=== PATIENT | female | born 1940 | race Caucasian/White ===

== ENCOUNTER 2020-04-15 15:58 | Observation (INO) ==
[2020-04-15] MEDS ORDERED: DilTIAZem 50 MG/50 ML IV.SOLN IVC SCH (16:15)
[2020-04-15 16:37] LABS: Basophils # 0.1 K/mcL (0.0-0.2); Basophils % 0.4 %; Eosinophils % 0.2 %; Hemoglobin 12.1 g/dL (11.5-15.4); Immature Granulocytes % 0.6 % (0-4); Lymphocytes # 1.1 K/mcL (0.6-4.6); Lymphocytes % 9.2 %; Mean Corpuscular HGB Conc 31.8 g/dL (31.6-35.5); Mean Corpuscular Hemoglobin 30.6 pg (28.0-33.3); Mean Corpuscular Volume 96.2 fL (83.0-100.0); Mean Platelet Volume 10.6 fL (9.4-12.4); Monocytes # 0.8 K/mcL (0.0-1.3); Monocytes % 6.2 %; Neutrophils # 10.2 K/mcL (1.6-8.9); Platelet Count 225 K/mcL (140-400); Red Blood Count 3.95 M/mcL (3.82-4.97); Red Cell Distribution Width 13.5 % (11.5-14.5); Segmented Neutrophils % 83.4 %; White Blood Count 12.3 K/mcL (4.3-11.1)
[2020-04-15 16:53] LABS: Activated Partial Thrombo Time 31.6 Seconds (26.0-36.0); Prothrombin Time 11.5 Seconds (9.4-12.1)
[2020-04-15 16:57] LABS: Magnesium 1.8 mg/dL (1.6-2.6); Potassium 3.8 mEq/L (3.5-5.1); Troponin I 0.03 ng/mL (< 0.04)
[2020-04-15 17:11] LABS: Thyroid Stimulating Hormone 3.231 mcIU/mL (0.340-5.600)
[2020-04-15 19:13] LABS: Bacteria,Urine Few per hpf (None-Few); Bilirubin,Urine Negative (Negative); Blood,Urine Negative (Negative); Clarity,Urine Turbid (Clear); Color,Urine Yellow (Yellow); Glucose,Urine (UA) Normal (Normal); Hyaline Casts,Urine Few per lpf (None Seen); Ketones,Urine Negative (Negative); Leukocyte Esterase,Urine Moderate (Negative); Mucus,Urine Few per lpf (None-Few); Nitrite,Urine Negative (Negative); Protein,Urine Trace mg/dL (Neg-Trace); RBC,Urine 30-50 per hpf (0-3); Specific Gravity,Urine 1.021 (1.010-1.025); Squamous Epithelial Cell,Urine Moderate per hpf (None-Few); Urobilinogen,Urine Normal (Normal); WBC,Urine 50-100 per hpf (0-3)
[2020-04-15] MEDS ORDERED: Acetaminophen 325 MG TABLET PO PRN (19:32)
[2020-04-15] MEDS ORDERED: Naloxone 0.4 MG/ML INJ IVP PRN (19:32)
[2020-04-15] MEDS ORDERED: Perflutren Lipid Microsphere 1.3 ML in 0.9 % Sodium Chloride 8.7 ML IVP PRN (19:42)
[2020-04-15] MEDS ORDERED: *HR* Heparin 5,000 UNIT/ML VIAL IVP ONE (20:57)
[2020-04-15] MEDS ORDERED: *HR* Heparin 5,000 UNIT/ML VIAL IVP PRN ×2 (20:57)
[2020-04-15 21:38] LABS: Hematocrit 36.8 % (35.3-44.9); Hemoglobin 11.6 g/dL (11.5-15.4); Mean Corpuscular HGB Conc 31.5 g/dL (31.6-35.5); Mean Corpuscular Hemoglobin 30.4 pg (28.0-33.3); Mean Corpuscular Volume 96.6 fL (83.0-100.0); Mean Platelet Volume 11.3 fL (9.4-12.4); Platelet Count 209 K/mcL (140-400); Red Blood Count 3.81 M/mcL (3.82-4.97); Red Cell Distribution Width 13.6 % (11.5-14.5); White Blood Count 11.7 K/mcL (4.3-11.1)
[2020-04-15] MEDS: Heparin 25,000UNIT/250ML 1/2NS 25,000 UNIT/250 ML IV.SOLN IVC SCH (22:12)
[2020-04-16 05:27] LABS: Hematocrit 40.2 % (35.3-44.9); Hemoglobin 12.5 g/dL (11.5-15.4); Mean Corpuscular HGB Conc 31.1 g/dL (31.6-35.5); Mean Corpuscular Volume 96.6 fL (83.0-100.0); Mean Platelet Volume 10.9 fL (9.4-12.4); Platelet Count 230 K/mcL (140-400); Red Blood Count 4.16 M/mcL (3.82-4.97); Red Cell Distribution Width 13.7 % (11.5-14.5); White Blood Count 11.2 K/mcL (4.3-11.1)
[2020-04-16 05:48] LABS: Calcium 8.6 mg/dL (8.6-10.3); Chol/HDL Ratio 3.4 (0-4.9); Potassium 4.1 mEq/L (3.5-5.1); Troponin I 0.03 ng/mL (< 0.04)
[2020-04-16] MEDS: Heparin 25,000UNIT/250ML 1/2NS 25,000 UNIT/250 ML IV.SOLN IVC SCH (09:01)
[2020-04-16] MEDS: lisinopriL 5 MG TABLET PO SCH (13:15)
[2020-04-16] MEDS: Aspirin Enteric Coated 81 MG Tablet PO SCH (20:32)
[2020-04-16] MEDS ORDERED: Metoprolol XL (24 HR) Succ 25 MG TAB.ER.24H PO ONE (21:00)
[2020-04-17 03:51] LABS: Hemoglobin 12.2 g/dL (11.5-15.4); Mean Corpuscular HGB Conc 32.1 g/dL (31.6-35.5); Mean Corpuscular Volume 96.4 fL (83.0-100.0); Mean Platelet Volume 11.4 fL (9.4-12.4); Platelet Count 207 K/mcL (140-400); Red Blood Count 3.94 M/mcL (3.82-4.97); Red Cell Distribution Width 13.6 % (11.5-14.5); White Blood Count 9.7 K/mcL (4.3-11.1)
[2020-04-17 03:52] LABS: Basophils # 0.1 K/mcL (0.0-0.2); Basophils % 0.7 %; Eosinophils # 0.2 K/mcL (0.0-0.6); Hematocrit 38.7 % (35.3-44.9); Hemoglobin 12.3 g/dL (11.5-15.4); Immature Granulocytes % 0.3 % (0-4); Lymphocytes # 1.8 K/mcL (0.6-4.6); Lymphocytes % 18.3 %; Mean Corpuscular HGB Conc 31.8 g/dL (31.6-35.5); Mean Corpuscular Hemoglobin 30.9 pg (28.0-33.3); Mean Corpuscular Volume 97.2 fL (83.0-100.0); Mean Platelet Volume 11.2 fL (9.4-12.4); Monocytes # 0.7 K/mcL (0.0-1.3); Monocytes % 7.1 %; Neutrophils # 6.8 K/mcL (1.6-8.9); Platelet Count 208 K/mcL (140-400); Red Blood Count 3.98 M/mcL (3.82-4.97); Red Cell Distribution Width 13.6 % (11.5-14.5); Segmented Neutrophils % 71.6 %; White Blood Count 9.6 K/mcL (4.3-11.1)
[2020-04-17 03:56] LABS: BUN/Creatinine Ratio 38 (6-26); Blood Urea Nitrogen 38 mg/dL (8-23); Calcium 8.5 mg/dL (8.6-10.3); Carbon Dioxide 25 mEq/L (23-29); Chloride 107 mEq/L (98-107); Glucose 104 mg/dL (70-105); Osmolality,Calculated 297 (280-300); Sodium 139 mEq/L (136-145); eGFR For African Americans > 60 (> 60); eGFR For Non-African Americans 54 (> 60)
[2020-04-17] MEDS ORDERED: Cholecalciferol (D-3) 1,000 UNIT (25MCG) TABLET PO SCH (09:00)
[2020-04-17] MEDS ORDERED: Metoprolol XL (24 HR) Succ 50 MG TAB.ER.24H PO SCH ×2 (09:00→21:00)
[2020-04-17] MEDS: Aspirin Enteric Coated 81 MG Tablet PO SCH (09:39)
[2020-04-17] MEDS: lisinopriL 5 MG TABLET PO SCH (09:39)
[2020-04-17 11:26] VITALS: BP 136/82
[2020-04-17] MEDS ORDERED: levoFLOXacin 500 MG TABLET PO SCH (12:15)
[2020-04-17] MEDS ORDERED: *HR* Rivaroxaban 10 MG TABLET PO SCH (17:00)
== END 2020-04-17 14:36 | disposition home health service (06) ==
LOC: 2ANU 15:58 → EMEROOARM 15:58 → SUATTDRO 18:24 → 2ANU 18:45
PROVIDERS: ADMIT Student in an Organized Health Care Education/Training Program; ATTEND Pharmacist

== ENCOUNTER 2020-08-24 12:23 | Inpatient (IN) ==
[2020-08-24] MEDS ORDERED: Isovue-370 500 ML BOTTLE IVP ONE (12:42)
[2020-08-24 13:28] LABS: Hematocrit 35.1 % (35.3-44.9); Hemoglobin 10.9 g/dL (11.5-15.4); Mean Corpuscular HGB Conc 31.1 g/dL (31.6-35.5); Mean Corpuscular Hemoglobin 29.4 pg (28.0-33.3); Mean Corpuscular Volume 94.6 fL (83.0-100.0); Mean Platelet Volume 11.1 fL (9.4-12.4); Platelet Count 222 K/mcL (140-400); Red Blood Count 3.71 M/mcL (3.82-4.97); Red Cell Distribution Width 15.4 % (11.5-14.5); White Blood Count 5.9 K/mcL (4.3-11.1)
[2020-08-24 13:32] LABS: INR 1.6; Prothrombin Time 18.4 Seconds (9.4-12.1)
[2020-08-24 13:50] LABS: Alanine Aminotransferase 22 Units/L (7-52); Albumin 3.8 g/dL (3.5-5.7); Albumin/Globulin Ratio 1.9 (1.1-2.2); Alkaline Phosphatase 92 Units/L (34-104); Aspartate Amino Transferase 29 Units/L (13-39); BUN/Creatinine Ratio 27 (6-26); Bilirubin,Total 1.2 mg/dL (0.3-1.0); Blood Urea Nitrogen 26 mg/dL (8-23); Calcium 8.8 mg/dL (8.6-10.3); Carbon Dioxide 22 mEq/L (23-29); Chloride 110 mEq/L (98-107); Glucose 83 mg/dL (70-105); Osmolality,Calculated 294 (280-300); Potassium 4.4 mEq/L (3.5-5.1); Sodium 140 mEq/L (136-145); Total Protein 5.8 g/dL (6.4-8.9); Troponin I < 0.03 ng/mL (< 0.04); eGFR For African Americans > 60 (> 60); eGFR For Non-African Americans 56 (> 60)
[2020-08-24 14:31] LABS: Bilirubin,Urine Negative (Negative); Blood,Urine Negative (Negative); Clarity,Urine Clear (Clear); Color,Urine Light-Yellow (Yellow); Glucose,Urine (UA) Normal (Normal); Ketones,Urine Negative (Negative); Leukocyte Esterase,Urine Negative (Negative); Nitrite,Urine Negative (Negative); PH,Urine 6.5 pH Units (5.0-8.0); Protein,Urine Trace mg/dL (Neg-Trace); Specific Gravity,Urine > 1.030 (1.010-1.025); Urobilinogen,Urine Normal (Normal)
[2020-08-24] MEDS ORDERED: Acetaminophen 325 MG TABLET PO PRN (16:54)
[2020-08-24] MEDS ORDERED: Ondansetron 4 MG/2 ML VIAL IVP PRN (16:54)
[2020-08-24] MEDS ORDERED: *HR* HYDROcodone/Acet 5/325 mg TABLET PO PRN (16:54)
[2020-08-24] MEDS ORDERED: Naloxone 0.4 MG/ML INJ IVP PRN (16:54)
[2020-08-24] MEDS ORDERED: Melatonin 3 MG TABLET PO PRN (16:54)
[2020-08-24] MEDS ORDERED: Ipratropium/Albuterol Neb 3 ML IH PRN (17:18)
[2020-08-24] MEDS ORDERED: Furosemide 20 MG/2 ML VIAL IVP SCH (17:30)
[2020-08-24] MEDS ORDERED: Azithromycin 500 MG in 0.9 % Sodium Chloride 250 ML IVPB SCH (18:00)
[2020-08-24 18:28] LABS: INR 1.5; Prothrombin Time 17.2 Seconds (9.4-12.1)
[2020-08-24 18:55] LABS: Procalcitonin < 0.02 ng/mL (0.00-0.15)
[2020-08-24 18:56] LABS: Thyroid Stimulating Hormone 5.87 mcIU/mL (0.340-5.600)
[2020-08-24 19:11] LABS: Folate 13.6 ng/mL (3.0-16.0); Vitamin B12 392 pg/mL (250-1100)
[2020-08-24 19:42] LABS: Bacteria,Urine Few per hpf (None-Few); Bilirubin,Urine Negative (Negative); Blood,Urine Large (Negative); Clarity,Urine Clear (Clear); Color,Urine Light-Yellow (Yellow); Glucose,Urine (UA) Normal (Normal); Ketones,Urine Negative (Negative); Leukocyte Esterase,Urine Negative (Negative); Nitrite,Urine Negative (Negative); PH,Urine 6.5 pH Units (5.0-8.0); Protein,Urine Trace mg/dL (Neg-Trace); RBC,Urine 50-100 per hpf (0-3); Specific Gravity,Urine > 1.030 (1.010-1.025); Squamous Epithelial Cell,Urine Moderate per hpf (None-Few); Urobilinogen,Urine Normal (Normal)
[2020-08-24] MEDS: Ipratropium/Albuterol Neb 3 ML IH SCH ×2 (19:55→23:46)
[2020-08-24] MEDS: cefTRIAXone 1,000 MG in 0.9 % Sodium Chloride Mini Bag 100 ML IVPB SCH (20:00)
[2020-08-24 21:17] LABS: Adenovirus Not Detected (Not Detect); Bordetella Pertussis Not Detected (Not Detect); Chlamydophila pneumoniae Not Detected (Not Detect); Coronavirus 229E Not Detected (Not Detect); Coronavirus HKU1 Not Detected (Not Detect); Coronavirus NL63 Not Detected (Not Detect); Coronavirus OC43 Not Detected (Not Detect); Human Metapneumovirus Not Detected (Not Detect); Human Rhinovirus/Enterovirus Not Detected (Not Detect); Influenza A Subtype 2009 H1 Not Detected (Not Detect); Influenza B Not Detected (Not Detect); Mycoplasma pneumoniae Not Detected (Not Detect); Parainfluenza Virus 1 Not Detected (Not Detect); Parainfluenza Virus 2 Not Detected (Not Detect); Parainfluenza Virus 3 Not Detected (Not Detect); Parainfluenza Virus 4 Not Detected (Not Detect); Respiratory Syncytial Virus Not Detected (Not Detect); SARS-CoV-2 Not Detected (Not Detect)
[2020-08-24] MEDS: QUEtiapine Fumarate 25 MG TABLET PO SCH (22:25)
[2020-08-25] MEDS ORDERED: Haloperidol Lactate 5 MG/ML VIAL IM ONE (02:30)
[2020-08-25] MEDS ORDERED: Ziprasidone 10 MG in Water for inj. (sterile) 0.5 ML IM ONE (03:23)
[2020-08-25] MEDS: Ipratropium/Albuterol Neb 3 ML IH SCH ×6 (03:59→23:12)
[2020-08-25 05:09] LABS: Basophils # 0.1 K/mcL (0.0-0.2); Basophils % 1.1 %; Eosinophils # 0.4 K/mcL (0.0-0.6); Eosinophils % 6.4 %; Hematocrit 33.9 % (35.3-44.9); Hemoglobin 10.5 g/dL (11.5-15.4); Immature Granulocytes % 0.6 % (0-4); Lymphocytes % 18.4 %; Mean Corpuscular Hemoglobin 29.2 pg (28.0-33.3); Mean Corpuscular Volume 94.4 fL (83.0-100.0); Mean Platelet Volume 11.1 fL (9.4-12.4); Monocytes # 0.6 K/mcL (0.0-1.3); Monocytes % 11.6 %; Neutrophils # 3.4 K/mcL (1.6-8.9); Platelet Count 206 K/mcL (140-400); Red Blood Count 3.59 M/mcL (3.82-4.97); Red Cell Distribution Width 15.4 % (11.5-14.5); Segmented Neutrophils % 61.9 %; White Blood Count 5.4 K/mcL (4.3-11.1)
[2020-08-25 05:29] LABS: Alanine Aminotransferase 20 Units/L (7-52); Albumin 3.6 g/dL (3.5-5.7); Albumin/Globulin Ratio 1.9 (1.1-2.2); Alkaline Phosphatase 87 Units/L (34-104); Aspartate Amino Transferase 26 Units/L (13-39); BUN/Creatinine Ratio 24 (6-26); Blood Urea Nitrogen 23 mg/dL (8-23); Calcium 8.7 mg/dL (8.6-10.3); Carbon Dioxide 23 mEq/L (23-29); Chloride 107 mEq/L (98-107); Chol/HDL Ratio 2.2 (0-4.9); Cholesterol 86 mg/dL (< 200); Globulin 1.9 g/dL (2.4-3.5); Glucose 79 mg/dL (70-105); HDL Cholesterol 40 mg/dL (40-59); LDL Cholesterol,Calculated 35 mg/dL (< 100); Magnesium 1.9 mg/dL (1.6-2.6); Osmolality,Calculated 293 (280-300); Phosphorous 4.2 mg/dL (2.7-4.5); Potassium 3.9 mEq/L (3.5-5.1); Sodium 140 mEq/L (136-145); Total Protein 5.5 g/dL (6.4-8.9); Triglycerides 55 mg/dL (< 150); eGFR For African Americans > 60 (> 60); eGFR For Non-African Americans 57 (> 60)
[2020-08-25] MEDS ORDERED: *HR* HYDROcodone/Acet 5/325 mg TABLET PO PRN (08:49)
[2020-08-25] MEDS ORDERED: Iron Sucrose Complex 400 MG in 0.9 % Sodium Chloride 250 ML IVPB ONE (08:51)
[2020-08-25] MEDS: Multivit/Ca/Min/Fe/FA 1 TAB TABLET PO SCH (10:41)
[2020-08-25] MEDS: cefTRIAXone 1,000 MG in 0.9 % Sodium Chloride Mini Bag 100 ML IVPB SCH (10:41)
[2020-08-25] MEDS: Albumin 25% 25gram/100mL 25 GM/100 ML IV.SOLN IVPB SCH (11:49)
[2020-08-25] MEDS ORDERED: Lacri-Lube 3.5 GM TUBE BOTH EYES SCH (12:45)
[2020-08-25] MEDS: *HR* LORazepam Oral Conc 2 MG/ML SL PRN ×2 (13:39→22:30)
[2020-08-25] MEDS: Morphine Sulfate Oral CONC 10 MG/0.5 ML ORAL.SYG SL PRN ×2 (13:39→22:31)
[2020-08-25] MEDS: Furosemide 40 MG/4 ML VIAL IVP SCH (14:34)
[2020-08-25] MEDS: Artificial Tears SOLN 15 ML BOTTLE BOTH EYES SCH ×2 (17:26→20:41)
[2020-08-25] MEDS: QUEtiapine Fumarate 25 MG TABLET PO SCH (21:36)
[2020-08-25] MEDS ORDERED: Morphine Sulfate Oral CONC 10 MG/0.5 ML ORAL.SYG SL ONE (23:30)
[2020-08-25] MEDS ORDERED: *HR* LORazepam Oral Conc 2 MG/ML SL ONE (23:30)
[2020-08-26] MEDS: Ipratropium/Albuterol Neb 3 ML IH SCH ×6 (03:29→23:10)
[2020-08-26] MEDS: Morphine Sulfate Oral CONC 10 MG/0.5 ML ORAL.SYG SL PRN ×4 (05:26→18:02)
[2020-08-26] MEDS: *HR* LORazepam Oral Conc 2 MG/ML SL PRN ×3 (05:26→18:02)
[2020-08-26] MEDS ORDERED: Levothyroxine 25 MCG TABLET PO SCH (06:30)
[2020-08-26] MEDS: Artificial Tears SOLN 15 ML BOTTLE BOTH EYES SCH ×4 (09:52→20:26)
[2020-08-26] MEDS: Albumin 25% 25gram/100mL 25 GM/100 ML IV.SOLN IVPB SCH (09:52)
[2020-08-26] MEDS: Furosemide 40 MG/4 ML VIAL IVP SCH (09:53)
[2020-08-26] MEDS: Multivit/Ca/Min/Fe/FA 1 TAB TABLET PO SCH ×2 (09:53→10:25)
[2020-08-26] MEDS: QUEtiapine Fumarate 25 MG TABLET PO SCH (20:26)
[2020-08-26] MEDS ORDERED: 0.9 % Sodium Chloride 250 ML IVC ONE (23:47)
[2020-08-26] MEDS ORDERED: Acetaminophen IV 500 MG/50 ML BAG IVPB ONE (23:48)
[2020-08-27] MEDS ORDERED: *HR* Metoprolol 5 MG/5 ML VIAL IVP ONE
[2020-08-27] MEDS: Morphine Sulfate Oral CONC 10 MG/0.5 ML ORAL.SYG SL PRN ×2 (03:32→10:50)
[2020-08-27] MEDS: *HR* LORazepam Oral Conc 2 MG/ML SL PRN (03:32)
[2020-08-27] MEDS: Ipratropium/Albuterol Neb 3 ML IH SCH ×4 (04:02→16:19)
[2020-08-27] MEDS: Artificial Tears SOLN 15 ML BOTTLE BOTH EYES SCH ×3 (09:00→17:00)
[2020-08-27] MEDS: Multivit/Ca/Min/Fe/FA 1 TAB TABLET PO SCH (09:59)
[2020-08-27 15:54] VITALS: BP 106/65
== END 2020-08-27 17:08 | disposition hospice, inpatient (51) | DRG 604 ==
LOC: EMEROOARM 12:23 → 3NENU 12:23 → SUATTDRO 16:55 → 3NENU 17:31 → 2ANU 08-25 13:23
PROVIDERS: ADMIT Internal Medicine; ATTEND Internal Medicine

== ENCOUNTER 2020-08-27 14:53 | Inpatient (IN) ==
[2020-08-27] MEDS ORDERED: Ondansetron 4 MG/2 ML VIAL IVP PRN (16:22)
[2020-08-27] MEDS ORDERED: Ipratropium/Albuterol Neb 3 ML IH PRN (16:22)
[2020-08-27] MEDS ORDERED: Bisacodyl 10 MG RECTAL SUPPOSITORY RC PRN (16:22)
[2020-08-27] MEDS: Haloperidol Oral Conc 10 MG/5 ML UDC PO PRN ×2 (17:41→22:02)
[2020-08-27] MEDS: Atropine 1% Opth Drops 100 DROP/5 ML BOTTLE SL PRN (18:04)
[2020-08-27] MEDS: Morphine Sulfate Oral CONC 10 MG/0.5 ML ORAL.SYG PO PRN ×2 (18:04→23:19)
[2020-08-28] MEDS: Haloperidol Oral Conc 10 MG/5 ML UDC PO PRN (05:19)
[2020-08-28] MEDS: Morphine Sulfate Oral CONC 10 MG/0.5 ML ORAL.SYG PO PRN ×2 (06:47→12:31)
[2020-08-28] MEDS: Artificial Tears SOLN 15 ML BOTTLE BOTH EYES SCH ×2 (13:44→22:29)
[2020-08-29] MEDS: Sennosides 8.6 MG TABLET PO SCH (13:33)
[2020-08-29] MEDS: Haloperidol Oral Conc 10 MG/5 ML UDC PO PRN (14:46)
[2020-08-29] MEDS: Artificial Tears SOLN 15 ML BOTTLE BOTH EYES SCH (22:21)
[2020-08-29] MEDS: Morphine Sulfate Oral CONC 10 MG/0.5 ML ORAL.SYG PO PRN (22:23)
[2020-08-30] MEDS: Haloperidol Oral Conc 10 MG/5 ML UDC PO PRN ×2 (06:32→14:34)
[2020-08-30] MEDS ORDERED: Haloperidol Lactate 5 MG/ML VIAL IVP STA (08:35)
[2020-08-30] MEDS: Sennosides 8.6 MG TABLET PO SCH (10:04)
[2020-08-30] MEDS: Morphine Sulfate Oral CONC 10 MG/0.5 ML ORAL.SYG PO PRN ×2 (14:35→23:04)
[2020-08-30] MEDS: QUEtiapine Fumarate 25 MG TABLET PO SCH (16:54)
[2020-08-30] MEDS: Haloperidol Lactate 5 MG/ML VIAL IVP PRN ×3 (16:56→23:05)
[2020-08-30] MEDS ORDERED: QUEtiapine Fumarate 25 MG TABLET PO SCH (21:00)
[2020-08-30] MEDS: Artificial Tears SOLN 15 ML BOTTLE BOTH EYES SCH (21:29)
[2020-08-31] MEDS: Morphine Sulfate Oral CONC 10 MG/0.5 ML ORAL.SYG PO PRN ×3 (04:22→19:38)
[2020-08-31] MEDS: Haloperidol Lactate 5 MG/ML VIAL IVP PRN (04:22)
[2020-08-31] MEDS: Sennosides 8.6 MG TABLET PO SCH (08:25)
[2020-08-31] MEDS: Artificial Tears SOLN 15 ML BOTTLE BOTH EYES SCH (19:41)
[2020-08-31] MEDS: QUEtiapine Fumarate 25 MG TABLET PO SCH (19:42)
[2020-09-01] MEDS: Sennosides 8.6 MG TABLET PO SCH (07:45)
[2020-09-01] MEDS: Morphine Sulfate Oral CONC 10 MG/0.5 ML ORAL.SYG PO PRN ×3 (07:45→22:49)
[2020-09-01] MEDS: Haloperidol Lactate 5 MG/ML VIAL IVP PRN ×2 (13:34→22:35)
[2020-09-01] MEDS: Haloperidol Oral Conc 10 MG/5 ML UDC PO PRN (14:46)
[2020-09-01] MEDS: *HR* LORazepam 2 MG/ML VIAL IVP PRN (17:02)
[2020-09-01] MEDS: Artificial Tears SOLN 15 ML BOTTLE BOTH EYES SCH (22:40)
[2020-09-01] MEDS: QUEtiapine Fumarate 25 MG TABLET PO SCH (22:41)
[2020-09-02] MEDS: Morphine Sulfate Oral CONC 10 MG/0.5 ML ORAL.SYG PO PRN ×3 (04:57→16:43)
[2020-09-02] MEDS: Sennosides 8.6 MG TABLET PO SCH (07:36)
[2020-09-02] MEDS: Haloperidol Oral Conc 10 MG/5 ML UDC PO PRN ×2 (07:36→21:24)
[2020-09-02] MEDS: *HR* LORazepam 2 MG/ML VIAL IVP PRN (16:43)
[2020-09-02] MEDS: Artificial Tears SOLN 15 ML BOTTLE BOTH EYES SCH (21:24)
[2020-09-02] MEDS: QUEtiapine Fumarate 25 MG TABLET PO SCH (21:37)
[2020-09-03] MEDS: *HR* LORazepam 2 MG/ML VIAL IVP PRN (07:47)
[2020-09-03] MEDS: Morphine Sulfate Oral CONC 10 MG/0.5 ML ORAL.SYG PO PRN (07:49)
[2020-09-03] MEDS: Sennosides 8.6 MG TABLET PO SCH ×2 (07:50→11:35)
[2020-09-03] MEDS: Artificial Tears SOLN 15 ML BOTTLE BOTH EYES SCH (21:21)
[2020-09-03] MEDS: QUEtiapine Fumarate 25 MG TABLET PO SCH (21:22)
[2020-09-04] MEDS: *HR* LORazepam 2 MG/ML VIAL IVP PRN (08:43)
[2020-09-04] MEDS: Sennosides 8.6 MG TABLET PO SCH (08:43)
[2020-09-04] MEDS: Morphine Sulfate Oral CONC 10 MG/0.5 ML ORAL.SYG PO PRN (09:03)
[2020-09-04] MEDS: Artificial Tears SOLN 15 ML BOTTLE BOTH EYES SCH (19:18)
[2020-09-05] MEDS: Morphine Sulfate Oral CONC 10 MG/0.5 ML ORAL.SYG PO PRN ×4 (03:06→20:33)
[2020-09-05] MEDS: *HR* LORazepam 2 MG/ML VIAL IVP PRN ×3 (06:47→22:17)
[2020-09-05] MEDS: Haloperidol Oral Conc 10 MG/5 ML UDC PO PRN (11:38)
[2020-09-05] MEDS: Artificial Tears SOLN 15 ML BOTTLE BOTH EYES SCH (20:30)
[2020-09-06] MEDS: Morphine Sulfate Oral CONC 10 MG/0.5 ML ORAL.SYG PO PRN ×3 (05:16→17:41)
[2020-09-06] MEDS: *HR* LORazepam 2 MG/ML VIAL IVP PRN (09:55)
[2020-09-06] MEDS: Artificial Tears SOLN 15 ML BOTTLE BOTH EYES SCH (21:15)
[2020-09-07] MEDS: Morphine Sulfate Oral CONC 10 MG/0.5 ML ORAL.SYG PO PRN ×3 (04:33→19:28)
[2020-09-07] MEDS: Artificial Tears SOLN 15 ML BOTTLE BOTH EYES SCH (21:40)
[2020-09-08] MEDS: Morphine Sulfate Oral CONC 10 MG/0.5 ML ORAL.SYG PO PRN ×3 (02:57→15:53)
[2020-09-08] MEDS: *HR* LORazepam 2 MG/ML VIAL IVP PRN (15:53)
[2020-09-08] MEDS: Artificial Tears SOLN 15 ML BOTTLE BOTH EYES SCH (20:49)
[2020-09-09] MEDS: *HR* LORazepam 2 MG/ML VIAL IVP PRN (04:33)
[2020-09-09] MEDS: Morphine Sulfate Oral CONC 10 MG/0.5 ML ORAL.SYG PO PRN ×3 (07:36→16:36)
[2020-09-09] MEDS: Haloperidol Oral Conc 10 MG/5 ML UDC PO PRN ×2 (07:37→16:36)
[2020-09-09] MEDS: Atropine 1% Opth Drops 100 DROP/5 ML BOTTLE SL PRN (07:40)
[2020-09-09] MEDS: Artificial Tears SOLN 15 ML BOTTLE BOTH EYES SCH (20:27)
[2020-09-10] MEDS: Morphine Sulfate Oral CONC 10 MG/0.5 ML ORAL.SYG PO PRN ×5 (00:15→15:39)
[2020-09-10] MEDS: Haloperidol Oral Conc 10 MG/5 ML UDC PO PRN ×3 (00:18→15:39)
[2020-09-10] MEDS: *HR* LORazepam 2 MG/ML VIAL IVP PRN ×3 (02:58→17:03)
[2020-09-10] MEDS: Atropine 1% Opth Drops 100 DROP/5 ML BOTTLE SL PRN ×2 (02:59→17:23)
[2020-09-10 06:50] VITALS: BP 115/74
[2020-09-10] MEDS ORDERED: Morphine Sulfate Oral CONC 10 MG/0.5 ML ORAL.SYG PO PRN (15:42)
[2020-09-10] MEDS ORDERED: Morphine Sulfate Oral CONC 10 MG/0.5 ML ORAL.SYG SL ONE (15:50)
[2020-09-10] MEDS ORDERED: *HR* FentaNYL (PF) 100 MCG/2 ML VIAL IVP PRN (17:10)
[2020-09-10] MEDS ORDERED: Scopolamine Patch 1.5 MG PATCH.TD72 TD SCH (17:15)
== END 2020-09-10 17:49 | disposition expired | DRG 951 ==
LOC: 2ANU 17:09
PROVIDERS: ADMIT Internal Medicine Hospice and Palliative Medicine; ATTEND Internal Medicine Hospice and Palliative Medicine